=== PATIENT | female | born 1975 | race Caucasian/White ===

== ENCOUNTER 2017-06-05 20:13 | Inpatient (IN) | payer OTHER ==
[~2017-06-05] VITALS: Ht 167.6 cm; Wt 92.5 kg
[2017-06-05 22:44] LABS: EOSINOPHIL (%) 3.2 % (0-5); EOSINOPHIL COUNT 0.2 K/uL (0-0.3); HEMATOCRIT 38.2 % (36.0-46.0); IMMATURE GRANULOCYTE (%) 0.2 % (0.0-0.7); INSTRUMENT ABS NEUTROPHIL CT 1.7 K/uL; LYMPHOCYTE COUNT 2.3 K/uL (1.0-2.8); MCH 26.8 PG (29.0-34.0); MCHC 32.7 G/DL (30.0-36.0); MCV 81.8 FL (83-99); MEAN PLAT.VOLUME 9.1 uM^3 (9.5-12.4); MONOCYTE (%) 9.1 % (3-12); MONOCYTE COUNT 0.4 K/uL (0-0.8); NEUTROPHIL (%) 36.4 % (45-76); NEUTROPHIL COUNT 1.7 K/uL (1.8-6.4); PLATELET COUNT 288 K/uL (156-360); RBC DIS.WIDTH-CV 13.8 % (11.8-14.6); RBC DIS.WIDTH-SD 40.9 % (39-53); RED BLOOD COUNT 4.67 M/uL (3.80-5.20); WHITE BLOOD COUNT 4.6 K/uL (4.1-10.2)
[2017-06-05 22:59] LABS: CHLORIDE 112 mEq/L (99-109); POTASSIUM 3.7 mEq/L (3.7-5.4); SODIUM 142 mEq/L (136-147)
[2017-06-05 23:01] LABS: GLUCOSE 92 mg/dL (70-99)
[2017-06-05 23:02] LABS: TROP-I INTERPRETATION NEGATIVE; TROPONIN-I < 0.01 ng/mL (0.0-0.30)
[2017-06-05 23:03] LABS: ANION GAP 9 MEQ/L (2-14); TOTAL BILIRUBIN 0.2 mg/dL (0.0-1.0)
[2017-06-05 23:05] LABS: ALKALINE PHOSPHATASE 69 IU/L (3-129); GFR ESTIMATE (CALCULATED) > 59 mL/min/
[2017-06-05 23:06] LABS: UREA NITROGEN (BUN) 8 mg/dL (9-23)
[2017-06-05 23:08] LABS: CREATINE KINASE 51 IU/L (1-294); TOTAL CK 51 IU/L (1-294)
[2017-06-05 23:14] LABS: QUANTITATIVE HCG < 4.0 MIU/ML
[2017-06-05 23:15] LABS: CK-MB 0.6 ng/mL (0.0-4.9)
[2017-06-05] MEDS ORDERED: ZYRTEC10 M3 PO (23:54)
[2017-06-05] MEDS ORDERED: LEXAPRO20 MG PO (23:54)
[2017-06-05] MEDS ORDERED: KEPPRA1000 MG PO (23:54)
[2017-06-05] MEDS ORDERED: MOTRIN600 MG PO (23:55)
[2017-06-05] MEDS ORDERED: BREO ELLIPTA I1 EACH IH (23:55)
[2017-06-05] MEDS ORDERED: OMEPRAZOLE40 M1 PO (23:56)
[2017-06-05] MEDS ORDERED: AZITHROMYCIN250 MG1 PO (23:56)
[2017-06-05] MEDS ORDERED: TOPAMAX100 MG PO (23:57)
[2017-06-05] MEDS ORDERED: LORAZEPAM0.5 MG PO (23:57)
[2017-06-05] MEDS ORDERED: LO-DOSE ASPIRIN81 M2 PO (23:57)
[2017-06-06 03:18] VITALS: BP 121/71
[2017-06-06 06:35] LABS: HEMATOCRIT 36.9 % (36.0-46.0); MCH 27.8 PG (29.0-34.0); MCHC 33.6 G/DL (30.0-36.0); MCV 82.7 FL (83-99); PLATELET COUNT 260 K/uL (156-360); RBC DIS.WIDTH-SD 41.9 % (39-53); RED BLOOD COUNT 4.46 M/uL (3.80-5.20); WHITE BLOOD COUNT 4.9 K/uL (4.1-10.2)
[2017-06-06 06:58] LABS: ANION GAP 7 MEQ/L (2-14); CHLORIDE 112 MEQ/L (99-109); GFR ESTIMATE (CALCULATED) > 59 mL/min/; GLUCOSE 90 mg/dL (70-99); POTASSIUM 3.8 MEQ/L (3.7-5.4); SAMPLE HEMOLYSIS CHECK 0; SAMPLE ICTERIC CHECK 0; SAMPLE LIPEMIA CHECK 0; SODIUM 143 MEQ/L (136-147); UREA NITROGEN (BUN) 11 mg/dL (9-23)
[2017-06-06 07:54] VITALS: BP 98/59
[2017-06-06 14:09] LABS: ADD MIUA? YES; BILIRUBIN NEGATIVE; BLOOD NEGATIVE; COLOR YELLOW ((YELLOW)); GLUCOSE (STRIP) NEGATIVE; KETONES NEGATIVE; LEUKOCYTES SMALL; NITRITE NEGATIVE; PROTEIN (STRIP) NEGATIVE; SPECIFIC GRAVITY 1.016 (1.000-1.030); UROBILINOGEN 0.2 MG/DL (0.2-1.0)
[2017-06-06 14:29] LABS: BACTERIA 1+ /HPF; EPITHELIAL CELLS 1+ /HPF; MUCUS TRACE /LPF; RED BLOOD CELLS 15-20 /HPF (0-5); UCUL ADDED? NO; WHITE BLOOD CELLS 0-5 /HPF (0-5)
[2017-06-06 17:20] VITALS: BP 114/69
[2017-06-06 20:08] VITALS: BP 119/69
[2017-06-06 21:03] LABS: POINT-OF-CARE METER ID UU14208753
[2017-06-06 22:31] VITALS: BP 117/78
[2017-06-07 00:18] VITALS: BP 117/78
[2017-06-07 03:53] VITALS: BP 102/63
[2017-06-07 06:37] LABS: EOSINOPHIL (%) 3.5 % (0-5); EOSINOPHIL COUNT 0.2 K/uL (0-0.3); HEMATOCRIT 35.5 % (36.0-46.0); IMMATURE GRANULOCYTE (%) 0.2 % (0.0-0.7); INSTRUMENT ABS NEUTROPHIL CT 1.9 K/uL; LYMPHOCYTE COUNT 2.7 K/uL (1.0-2.8); MCH 26.8 PG (29.0-34.0); MCHC 32.1 G/DL (30.0-36.0); MCV 83.5 FL (83-99); MONOCYTE (%) 9.7 % (3-12); MONOCYTE COUNT 0.5 K/uL (0-0.8); NEUTROPHIL (%) 35.7 % (45-76); NEUTROPHIL COUNT 1.9 K/uL (1.8-6.4); PLATELET COUNT 253 K/uL (156-360); RBC DIS.WIDTH-SD 42.6 % (39-53); RED BLOOD COUNT 4.25 M/uL (3.80-5.20); WHITE BLOOD COUNT 5.4 K/uL (4.1-10.2)
[2017-06-07 07:01] LABS: ANION GAP 7 MEQ/L (2-14); CHLORIDE 113 MEQ/L (99-109); GFR ESTIMATE (CALCULATED) > 59 mL/min/; GLUCOSE 90 mg/dL (70-99); SAMPLE HEMOLYSIS CHECK 0; SAMPLE ICTERIC CHECK 0; SAMPLE LIPEMIA CHECK 0; SODIUM 142 MEQ/L (136-147); UREA NITROGEN (BUN) 10 mg/dL (9-23)
[2017-06-07 07:38] VITALS: BP 112/72
[2017-06-07 11:16] VITALS: BP 107/59
[2017-06-07 15:29] VITALS: BP 114/75
[2017-06-07 20:22] VITALS: BP 111/56
[2017-06-08 00:17] VITALS: BP 128/82
[2017-06-08 05:14] VITALS: BP 128/68
[2017-06-08 07:17] LABS: ANION GAP 7 MEQ/L (2-14); CHLORIDE 114 MEQ/L (99-109); GFR ESTIMATE (CALCULATED) > 59 mL/min/; GLUCOSE 85 mg/dL (70-99); POTASSIUM 3.9 MEQ/L (3.7-5.4); SAMPLE HEMOLYSIS CHECK 0; SAMPLE ICTERIC CHECK 0; SAMPLE LIPEMIA CHECK 0; SODIUM 141 MEQ/L (136-147); UREA NITROGEN (BUN) 6 mg/dL (9-23)
[2017-06-08 08:02] VITALS: BP 130/81
[2017-06-08 12:12] VITALS: BP 126/76
[2017-06-08] MEDS ORDERED: LEVETIRACETAM500 MG PO ×2 (13:53→15:15)
[2017-06-08] MEDS ORDERED: TOPIRAMATE100 MG PO ×2 (13:53→15:15)
[2017-06-08 15:53] VITALS: BP 117/72
== END 2017-06-08 16:28 | disposition home or self-care (01) | DRG 101 ==
LOC: EME → EDBD 20:13 → EDOF 06-06 01:44 → 3EAST 06-06 01:44
PROVIDERS: Emergency Medicine; Hospitalist; Internal Medicine
DX: G40.909 Epilepsy, unspecified, not intractable, without status epilepticus (principal); G80.9 Cerebral palsy, unspecified; I10 Essential (primary) hypertension; J02.0 Streptococcal pharyngitis; E66.9 Obesity, unspecified; Z68.32 Body mass index [BMI] 32.0-32.9, adult; F32.9 Major depressive disorder, single episode, unspecified; F43.10 Post-traumatic stress disorder, unspecified; F17.210 Nicotine dependence, cigarettes, uncomplicated; Z79.82 Long term (current) use of aspirin; Z79.899 Other long term (current) drug therapy; Z88.6 Allergy status to analgesic agent
CPT/HCPCS: 70450; 71010; 80048; 80053; 81003; 82550; 82553; 82948; 84484; 84702; 85025; 85027; 87651 90; 93005; 94640; 94640 76; 99281; 99282; J2060; J7030

== ENCOUNTER 2017-07-14 17:19 | Emergency (ER) | payer OTHER ==
[~2017-07-14] VITALS: Ht 162.6 cm; Wt 92.6 kg
[~2017-07-14 17:19] MED LIST: AZITHROMYCIN250 MG1 PO; BREO ELLIPTA I1 EACH IH; KEPPRA1000 MG PO; LEVETIRACETAM500 MG PO; LEXAPRO20 MG PO; LO-DOSE ASPIRIN81 M2 PO; LORAZEPAM0.5 MG PO; MOTRIN600 MG PO; OMEPRAZOLE40 M1 PO; TOPAMAX100 MG PO; TOPIRAMATE100 MG PO; ZYRTEC10 M3 PO
[2017-07-14 17:34] LABS: HEMATOCRIT 39.2 % (36.0-46.0); MCH 27.6 PG (29.0-34.0); MCHC 32.9 G/DL (30.0-36.0); MCV 83.8 FL (83-99); MEAN PLAT.VOLUME 8.6 uM^3 (9.5-12.4); PLATELET COUNT 305 K/uL (156-360); RBC DIS.WIDTH-CV 14.6 % (11.8-14.6); RBC DIS.WIDTH-SD 44.2 % (39-53); RED BLOOD COUNT 4.68 M/uL (3.80-5.20); WHITE BLOOD COUNT 7.4 K/uL (4.1-10.2)
[2017-07-14 17:43] LABS: CHLORIDE 106 mEq/L (99-109); POTASSIUM 4.1 mEq/L (3.7-5.4); SODIUM 139 mEq/L (136-147)
[2017-07-14 17:44] LABS: GLUCOSE 108 mg/dL (70-99)
[2017-07-14 17:46] LABS: ANION GAP 11 MEQ/L (2-14)
[2017-07-14 17:48] LABS: GFR ESTIMATE (CALCULATED) > 59 mL/min/
[2017-07-14 17:49] LABS: UREA NITROGEN (BUN) 14 mg/dL (9-23)
[2017-07-14 17:55] LABS: TROP-I INTERPRETATION NEGATIVE; TROPONIN-I < 0.01 ng/mL (0.0-0.30)
[2017-07-14 18:56] VITALS: BP 135/80
== END 2017-07-14 18:59 | disposition home or self-care (01) ==
LOC: EME 17:19
PROVIDERS: Emergency Medicine
DX: M94.0 Chondrocostal junction syndrome [Tietze] (principal); R56.9 Unspecified convulsions; G80.9 Cerebral palsy, unspecified; J45.909 Unspecified asthma, uncomplicated; F41.9 Anxiety disorder, unspecified; F32.9 Major depressive disorder, single episode, unspecified; F17.200 Nicotine dependence, unspecified, uncomplicated; Z88.0 Allergy status to penicillin
CPT/HCPCS: 71020; 80048; 84484; 85027; 93005; 99281; 99284; J1885

== ENCOUNTER 2017-08-01 17:15 | Emergency (ER) | payer OTHER ==
[~2017-08-01] VITALS: Ht 162.6 cm; Wt 97.5 kg
[2017-08-01] MEDS ORDERED: TOPAMAX200 MG PO (19:00)
[2017-08-01] MEDS ORDERED: TOPIRAMATE200 MG PO (22:40)
[2017-08-01 23:00] VITALS: BP 133/79
== END 2017-08-01 23:24 | disposition home or self-care (01) ==
LOC: EME 17:15
DX: G40.909 Epilepsy, unspecified, not intractable, without status epilepticus (principal); Z91.14 Patient's other noncompliance with medication regimen; R51 Headache; R20.0 Anesthesia of skin; J45.909 Unspecified asthma, uncomplicated; G80.9 Cerebral palsy, unspecified
CPT/HCPCS: 90832; 99281; 99285

== ENCOUNTER 2017-10-18 21:26 | Emergency (ER) | payer OTHER ==
[~2017-10-18] VITALS: Ht 177.8 cm; Wt 95.3 kg
[~2017-10-18 21:26] MED LIST changes: +TOPAMAX200 MG PO; +TOPIRAMATE200 MG PO
[2017-10-18] MEDS ORDERED: TOPAMAX200 MG PO (22:06)
[2017-10-18] MEDS ORDERED: KEPPRA1000 MG PO (22:07)
[2017-10-18 22:19] VITALS: BP 130/75
== END 2017-10-18 22:21 | disposition home or self-care (01) ==
LOC: EME 21:26
DX: G40.909 Epilepsy, unspecified, not intractable, without status epilepticus (principal); T42.6X6A Underdosing of other antiepileptic and sedative-hypnotic drugs, initial encounter; Z91.14 Patient's other noncompliance with medication regimen; G80.9 Cerebral palsy, unspecified; J45.909 Unspecified asthma, uncomplicated; F32.9 Major depressive disorder, single episode, unspecified; F41.9 Anxiety disorder, unspecified; Z79.82 Long term (current) use of aspirin; Z88.0 Allergy status to penicillin
CPT/HCPCS: 93005; 99281; 99284

== ENCOUNTER 2017-10-28 16:06 | Emergency (ER) | payer OTHER ==
[~2017-10-28] VITALS: Ht 157.5 cm; Wt 95.8 kg
[2017-10-28] MEDS ORDERED: LEXAPRO20 MG PO (17:40)
[2017-10-28 18:03] VITALS: BP 141/68
== END 2017-10-28 18:04 | disposition home or self-care (01) ==
LOC: EME 16:06
DX: S63.501A Unspecified sprain of right wrist, initial encounter (principal); X58.XXXA Exposure to other specified factors, initial encounter; Z76.0 Encounter for issue of repeat prescription; F41.9 Anxiety disorder, unspecified; F32.9 Major depressive disorder, single episode, unspecified; J45.909 Unspecified asthma, uncomplicated; Z79.82 Long term (current) use of aspirin
CPT/HCPCS: 73090; 73110; 99281; 99283

== ENCOUNTER 2017-11-06 14:12 | Emergency (ER) | payer OTHER ==
[~2017-11-06] VITALS: Ht 165.1 cm; Wt 95.4 kg
[2017-11-06 15:04] LABS: BASOPHIL COUNT 0.1 K/uL (0-0.1); EOSINOPHIL (%) 1.7 % (0-5); EOSINOPHIL COUNT 0.1 K/uL (0-0.3); HEMATOCRIT 38.7 % (36.0-46.0); IMMATURE GRANULOCYTE (%) 0.3 % (0.0-0.7); INSTRUMENT ABS NEUTROPHIL CT 3.6 K/uL; LYMPHOCYTE COUNT 1.6 K/uL (1.0-2.8); MCH 27.8 PG (29.0-34.0); MCHC 32.6 G/DL (30.0-36.0); MCV 85.2 FL (83-99); MEAN PLAT.VOLUME 8.8 uM^3 (9.5-12.4); MONOCYTE (%) 7.4 % (3-12); MONOCYTE COUNT 0.4 K/uL (0-0.8); NEUTROPHIL (%) 61.8 % (45-76); NEUTROPHIL COUNT 3.6 K/uL (1.8-6.4); PLATELET COUNT 345 K/uL (156-360); RBC DIS.WIDTH-CV 13.7 % (11.8-14.6); RBC DIS.WIDTH-SD 42.5 % (39-53); RED BLOOD COUNT 4.54 M/uL (3.80-5.20); WHITE BLOOD COUNT 5.8 K/uL (4.1-10.2)
[2017-11-06 15:15] LABS: CHLORIDE 109 mEq/L (99-109); POTASSIUM 3.9 mEq/L (3.7-5.4); SODIUM 141 mEq/L (136-147)
[2017-11-06 15:16] LABS: MAGNESIUM 2.2 mg/dL (1.3-2.7)
[2017-11-06 15:18] LABS: GLUCOSE 131 mg/dL (70-99)
[2017-11-06 15:19] LABS: ANION GAP 9 MEQ/L (2-14)
[2017-11-06 15:20] LABS: TOTAL BILIRUBIN 0.3 mg/dL (0.0-1.0)
[2017-11-06 15:21] LABS: ALKALINE PHOSPHATASE 66 IU/L (3-129); GFR ESTIMATE (CALCULATED) > 59 mL/min/
[2017-11-06 15:22] LABS: UREA NITROGEN (BUN) 15 mg/dL (9-23)
[2017-11-06 15:30] LABS: QUANTITATIVE HCG < 4.0 MIU/ML
[2017-11-06 15:31] LABS: TROP-I INTERPRETATION NEGATIVE; TROPONIN-I < 0.01 ng/mL (0.0-0.30)
[2017-11-06] MEDS ORDERED: VENTOLIN HFA18 GM IH (18:00)
[2017-11-06] MEDS ORDERED: ZOFRAN ODT4 MG PO (18:00)
[2017-11-06 18:20] VITALS: BP 139/75
== END 2017-11-06 18:49 | disposition home or self-care (01) ==
LOC: EME 14:12
PROVIDERS: Emergency Medicine
DX: R07.89 Other chest pain (principal); J45.901 Unspecified asthma with (acute) exacerbation; R11.2 Nausea with vomiting, unspecified; E86.0 Dehydration; G80.9 Cerebral palsy, unspecified; K21.9 Gastro-esophageal reflux disease without esophagitis; F41.9 Anxiety disorder, unspecified; F32.9 Major depressive disorder, single episode, unspecified; Z79.82 Long term (current) use of aspirin; Z88.0 Allergy status to penicillin
CPT/HCPCS: 71020; 80053; 83735; 84443; 84484; 84702; 85025; 93005; 99281; 99284; J2405; J7030

== ENCOUNTER 2017-12-04 18:13 | Emergency (ER) | payer OTHER ==
[~2017-12-04] VITALS: Ht 165.1 cm; Wt 95.1 kg
[~2017-12-04 18:13] MED LIST changes: +VENTOLIN HFA18 GM IH; +ZOFRAN ODT4 MG PO
[2017-12-04] MEDS ORDERED: PREDNISONE20 MG PO (20:39)
[2017-12-04 21:21] VITALS: BP 134/84
== END 2017-12-04 21:48 | disposition home or self-care (01) ==
LOC: EME 18:13
DX: J45.909 Unspecified asthma, uncomplicated (principal); J06.9 Acute upper respiratory infection, unspecified; M54.9 Dorsalgia, unspecified; Z79.82 Long term (current) use of aspirin
CPT/HCPCS: 71046; 84702; 93005; 94640; 99281; 99284; J7512

== ENCOUNTER 2017-12-11 03:12 | Emergency (ER) | payer OTHER ==
[~2017-12-11] VITALS: Ht 165.1 cm; Wt 57.9 kg
[~2017-12-11 03:12] MED LIST changes: +PREDNISONE20 MG PO
[2017-12-11 04:25] LABS: APPEARANCE CLEAR ((CLEAR)); BILIRUBIN NEGATIVE; BLOOD SMALL; COLOR STRAW ((YELLOW)); GLUCOSE (STRIP) NEGATIVE; KETONES NEGATIVE; LEUKOCYTES LARGE; NITRITE NEGATIVE; PROTEIN (STRIP) NEGATIVE; SPECIFIC GRAVITY 1.006 (1.000-1.030); UROBILINOGEN 0.2 MG/DL (0.2-1.0)
[2017-12-11 04:29] LABS: BACTERIA RARE /HPF; EPITHELIAL CELLS 1+ /HPF; MUCUS NONE SEEN /LPF; UCUL ADDED? YES; WHITE BLOOD CELLS 15-20 /HPF (0-5)
[2017-12-11] MEDS ORDERED: MACROBID100 MG PO ×2 (05:36→05:37)
[2017-12-11] MEDS ORDERED: ROBITUSSIN100 MG/5 M PO (05:37)
[2017-12-11 05:50] VITALS: BP 109/66
== END 2017-12-11 05:50 | disposition home or self-care (01) ==
LOC: EME 03:12
PROVIDERS: Nurse Practitioner Family
DX: J06.9 Acute upper respiratory infection, unspecified (principal); B34.9 Viral infection, unspecified; J45.909 Unspecified asthma, uncomplicated; G80.9 Cerebral palsy, unspecified; Z86.73 Personal history of transient ischemic attack (TIA), and cerebral infarction without residual deficits; R56.9 Unspecified convulsions; F32.9 Major depressive disorder, single episode, unspecified; F41.9 Anxiety disorder, unspecified; Z79.82 Long term (current) use of aspirin
CPT/HCPCS: 71046; 81003; 87086; 99281; 99284

== ENCOUNTER 2018-03-09 16:04 | Emergency (ER) | payer OTHER ==
[~2018-03-09] VITALS: Ht 165.1 cm; Wt 93.0 kg
[~2018-03-09 16:04] MED LIST changes: +MACROBID100 MG PO; +ROBITUSSIN100 MG/5 M PO
[2018-03-09] MEDS ORDERED: CLEOCIN150 MG PO (17:38)
[2018-03-09] MEDS ORDERED: PERCOCET 5/31 TABLET PO (17:40)
[2018-03-09 18:08] VITALS: BP 158/91
== END 2018-03-09 18:09 | disposition home or self-care (01) ==
LOC: EME 16:04
DX: K04.7 Periapical abscess without sinus (principal); J45.909 Unspecified asthma, uncomplicated; G80.9 Cerebral palsy, unspecified; F32.9 Major depressive disorder, single episode, unspecified; F41.9 Anxiety disorder, unspecified; Z87.891 Personal history of nicotine dependence; Z79.82 Long term (current) use of aspirin; Z88.0 Allergy status to penicillin
CPT/HCPCS: 99281; 99284

== ENCOUNTER 2018-04-18 10:16 | Emergency (ER) | payer OTHER ==
[~2018-04-18] VITALS: Ht 160 cm; Wt 91.1 kg
[~2018-04-18 10:16] MED LIST changes: +CLEOCIN150 MG PO; +PERCOCET 5/31 TABLET PO
[2018-04-18] MEDS ORDERED: CLEOCIN300 MG PO (11:00)
[2018-04-18] MEDS ORDERED: ULTRACET1 TABLET PO (11:00)
[2018-04-18] MEDS ORDERED: CLEOCIN150 MG PO (11:00)
[2018-04-18] MEDS ORDERED: MOTRIN600 MG PO (11:00)
[2018-04-18 11:19] VITALS: BP 157/80
== END 2018-04-18 11:19 | disposition home or self-care (01) ==
LOC: EME 10:16
DX: K08.89 Other specified disorders of teeth and supporting structures (principal); J45.909 Unspecified asthma, uncomplicated; F41.9 Anxiety disorder, unspecified; F32.9 Major depressive disorder, single episode, unspecified; Z87.891 Personal history of nicotine dependence; Z88.0 Allergy status to penicillin
CPT/HCPCS: 99281; 99284

== ENCOUNTER 2018-04-24 21:29 | Emergency (ER) | payer OTHER ==
[~2018-04-24] VITALS: Ht 157.5 cm; Wt 88.1 kg
[~2018-04-24 21:29] MED LIST changes: +CLEOCIN300 MG PO; +ULTRACET1 TABLET PO
[2018-04-24 21:49] LABS: HEMATOCRIT 40.9 % (36.0-46.0); HEMOGLOBIN 13.9 G/DL (11.9-15.5); MCH 28.3 PG (29.0-34.0); MCV 83.3 FL (83-99); PLATELET COUNT 324 K/uL (156-360); RBC DIS.WIDTH-CV 13.5 % (11.8-14.6); RBC DIS.WIDTH-SD 41.6 % (39-53); RED BLOOD COUNT 4.91 M/uL (3.80-5.20); WHITE BLOOD COUNT 7.4 K/uL (4.1-10.2)
[2018-04-24 22:00] LABS: ALBUMIN 4.3 g/dL (3.2-4.8); CHLORIDE 103 mEq/L (99-109); POTASSIUM 3.5 mEq/L (3.7-5.4); SODIUM 139 mEq/L (136-147)
[2018-04-24 22:02] LABS: GLUCOSE 92 mg/dL (70-99); TOTAL PROTEIN 7.5 g/dL (6.4-8.3)
[2018-04-24 22:04] LABS: TOTAL BILIRUBIN 0.5 mg/dL (0.0-1.0)
[2018-04-24 22:06] LABS: ALKALINE PHOSPHATASE 72 IU/L (3-129); CREATININE 0.9 mg/dL (0.6-1.3); GFR ESTIMATE (CALCULATED) > 59 mL/min/
[2018-04-24 22:07] LABS: AST (GOT) 17 IU/L (2-34); UREA NITROGEN (BUN) 10 mg/dL (9-23)
[2018-04-24 22:09] LABS: ALT (GPT) 10 IU/L (3-49); LIPASE 36 U/L (1.0-51.0)
[2018-04-24 22:17] LABS: QUANTITATIVE HCG < 4.0 MIU/ML
[2018-04-25 00:32] LABS: APPEARANCE CLEAR ((CLEAR)); BILIRUBIN NEGATIVE; BLOOD NEGATIVE; COLOR YELLOW ((YELLOW)); GLUCOSE (STRIP) NEGATIVE; KETONES NEGATIVE; LEUKOCYTES NEGATIVE; NITRITE NEGATIVE; PROTEIN (STRIP) NEGATIVE; SPECIFIC GRAVITY 1.043 (1.000-1.030); UCUL ADDED? NO; UROBILINOGEN 0.2 MG/DL (0.2-1.0)
[2018-04-25] MEDS ORDERED: ZOFRAN4 MG PO (00:32)
[2018-04-25 00:36] VITALS: BP 130/97
== END 2018-04-25 00:43 | disposition home or self-care (01) ==
LOC: EME 21:29
DX: R10.31 Right lower quadrant pain (principal); M89.8X8 Other specified disorders of bone, other site; R51 Headache; J45.909 Unspecified asthma, uncomplicated; R56.9 Unspecified convulsions; F41.9 Anxiety disorder, unspecified; F32.9 Major depressive disorder, single episode, unspecified; Z79.82 Long term (current) use of aspirin; Z87.891 Personal history of nicotine dependence; Z86.69 Personal history of other diseases of the nervous system and sense organs; Z86.39 Personal history of other endocrine, nutritional and metabolic disease; Z86.79 Personal history of other diseases of the circulatory system; Z90.49 Acquired absence of other specified parts of digestive tract; Z88.0 Allergy status to penicillin
CPT/HCPCS: 74177; 80053; 81003; 83690; 84702; 85027; 99281; 99284; J7030

== ENCOUNTER 2018-05-03 13:57 | Emergency (ER) | payer OTHER ==
[~2018-05-03] VITALS: Ht 157.5 cm; Wt 93.5 kg
[~2018-05-03 13:57] MED LIST changes: +ZOFRAN4 MG PO
[2018-05-03 15:08] LABS: HEMATOCRIT 41.5 % (36.0-46.0); HEMOGLOBIN 14.1 G/DL (11.9-15.5); MCH 28.4 PG (29.0-34.0); MCV 83.7 FL (83-99); PLATELET COUNT 338 K/uL (156-360); RBC DIS.WIDTH-CV 13.5 % (11.8-14.6); RBC DIS.WIDTH-SD 40.7 % (39-53); RED BLOOD COUNT 4.96 M/uL (3.80-5.20); WHITE BLOOD COUNT 6.3 K/uL (4.1-10.2)
[2018-05-03 15:16] LABS: CHLORIDE 105 mEq/L (99-109); POTASSIUM 4.3 mEq/L (3.7-5.4)
[2018-05-03 15:17] LABS: SODIUM 140 mEq/L (136-147)
[2018-05-03 15:18] LABS: GLUCOSE 87 mg/dL (70-99)
[2018-05-03 15:22] LABS: CREATININE 0.8 mg/dL (0.6-1.3); GFR ESTIMATE (CALCULATED) > 59 mL/min/
[2018-05-03 15:23] LABS: UREA NITROGEN (BUN) 11 mg/dL (9-23)
[2018-05-03 15:31] LABS: QUANTITATIVE HCG < 4.0 MIU/ML
[2018-05-03 15:49] LABS: APPEARANCE CLEAR ((CLEAR)); BILIRUBIN NEGATIVE; BLOOD NEGATIVE; COLOR STRAW ((YELLOW)); GLUCOSE (STRIP) NEGATIVE; KETONES NEGATIVE; LEUKOCYTES NEGATIVE; NITRITE NEGATIVE; PROTEIN (STRIP) NEGATIVE; SPECIFIC GRAVITY 1.005 (1.000-1.030); UCUL ADDED? NO; UROBILINOGEN 0.2 MG/DL (0.2-1.0)
[2018-05-03 15:58] LABS: AMPHETAMINE NEGATIVE (500 ng/mL); BARBITURATES NEGATIVE (200 ng/mL); BENZODIAZEPINES NEGATIVE (150 ng/mL); BUPRENORPHINE NEGATIVE (10 ng/mL); COCAINE NEGATIVE (150 ng/mL); METHADONE NEGATIVE (200 ng/mL); METHAMPHETAMINE NEGATIVE (500 ng/mL); OPIATES (MORPHINE) NEGATIVE (100 ng/mL); OXYCODONE NEGATIVE (100 ng/mL); PHENCYCLIDINE NEGATIVE (25 ng/mL); PROPOXYPHENE NEGATIVE (300 ng/mL); THC CANNABINOIDS NEGATIVE (50 ng/mL); TRICYCLIC ANTIDEPRESSANTS NEGATIVE (300 ng/mL)
[2018-05-03 17:49] VITALS: BP 121/87
== END 2018-05-03 17:49 | disposition home or self-care (01) ==
LOC: EME 13:57
PROVIDERS: Emergency Medicine
DX: G40.909 Epilepsy, unspecified, not intractable, without status epilepticus (principal); J45.909 Unspecified asthma, uncomplicated; F41.9 Anxiety disorder, unspecified; F32.9 Major depressive disorder, single episode, unspecified; Z87.891 Personal history of nicotine dependence; Z90.49 Acquired absence of other specified parts of digestive tract; Z79.82 Long term (current) use of aspirin; Z88.0 Allergy status to penicillin
CPT/HCPCS: 70450; 80048; 81003; 84702; 85027; 99281; 99285; J1953; J7050

== ENCOUNTER 2018-07-06 19:33 | Emergency (ER) | payer OTHER ==
[~2018-07-06] VITALS: Ht 165.1 cm; Wt 96.0 kg
[2018-07-06] MEDS ORDERED: MOTRIN600 MG PO (23:52)
[2018-07-07 00:01] VITALS: BP 140/106
== END 2018-07-07 00:03 | disposition home or self-care (01) ==
LOC: EME 19:33
DX: S83.91XA Sprain of unspecified site of right knee, initial encounter (principal); S09.90XA Unspecified injury of head, initial encounter; W18.30XA Fall on same level, unspecified, initial encounter; M17.11 Unilateral primary osteoarthritis, right knee; I10 Essential (primary) hypertension; J45.909 Unspecified asthma, uncomplicated; G80.9 Cerebral palsy, unspecified; F32.9 Major depressive disorder, single episode, unspecified; F41.9 Anxiety disorder, unspecified; F17.200 Nicotine dependence, unspecified, uncomplicated; Z79.82 Long term (current) use of aspirin; Z99.3 Dependence on wheelchair; Z86.79 Personal history of other diseases of the circulatory system; Z86.2 Personal history of diseases of the blood and blood-forming organs and certain disorders involving the immune mechanism; Z86.73 Personal history of transient ischemic attack (TIA), and cerebral infarction without residual deficits; Z90.49 Acquired absence of other specified parts of digestive tract; Z88.0 Allergy status to penicillin
CPT/HCPCS: 73564; 99281; 99284